=== PATIENT | female | born 1975 | race African-American/Black ===

== ENCOUNTER 2025-04-10 13:45 | Emergency (ER) | payer OTHER ==
[~2025-04-10] VITALS: Ht 177.8 cm; Wt 122.5 kg
[2025-04-10] MEDS ORDERED: PROTONIX20 MG PO (14:18)
[2025-04-10] MEDS ORDERED: OXYCODONE HCL20 M1 PO (14:18)
[2025-04-10] MEDS: HYDROCODONE/APAP 5MG-325MG TAB PO ONE (14:20)
[2025-04-10] MEDS ORDERED: HYDROCODON-ACE1 EAC9 PO (15:35)
[2025-04-10 16:23] VITALS: PULSE 88; RESP 18; TEMP 98.3; O2SAT 99
== END 2025-04-10 16:23 | disposition home or self-care (01) ==
LOC: FSED 13:55
DX: M25.552 Pain in left hip (principal); W18.2XXA Fall in (into) shower or empty bathtub, initial encounter; Y93.E1 Activity, personal bathing and showering; Y92.89 Other specified places as the place of occurrence of the external cause; K21.9 Gastro-esophageal reflux disease without esophagitis; E66.9 Obesity, unspecified; Z87.19 Personal history of other diseases of the digestive system; Z98.0 Intestinal bypass and anastomosis status
CPT/HCPCS: 72192; 81025; 99284